=== PATIENT | male | born 1990 | race Caucasian/White ===

== ENCOUNTER → 2021-01-15 11:40 | Outpatient (CLI) | payer OTHER, SELFPAY ==
--- NOTE | 2021-01-15 | DI.MRI.S_ITS ---
PROCEDURE: MR KNEE LT WO CON INDICATIONS: Unspecified internal derangement of left knee TECHNIQUE: Noncontrast sagittal PD fast spin echo and T2 fast spin echo with fat saturation, sagittal 3-D FLASH with fat saturation; coronal T1 spin echo and PD fast spin echo with fat saturation, and axial PD fast spin echo with fat saturation through the knee. COMPARISON: None. FINDINGS: Image quality: Excellent. Menisci: There is ill-defined tear involving the peripheral aspect of the posterior horn of the medial meniscus (series 11 image 25. The lateral meniscus demonstrates normal morphology and internal signal. The meniscal root ligaments appear intact. Cruciate ligaments: The anterior cruciate ligament is torn. The posterior cruciate ligament appears intact. Medial structures: There is partial tear (grade 2) of the medial collateral ligament. The semimembranosus tendon insertions and meniscocapsular junction appear intact. Visualized portions of the pes anserinus tendons appear normal. No abnormal bursal fluid. Lateral structures: The lateral collateral ligament and the biceps femoris tendon appear intact. The popliteus tendon appears normal; the popliteofibular ligament appears intact. Iliotibial band appears normal. Anterior structures: The quadriceps and patellar tendons appear intact. Patellar alignment is normal. No femoral trochlear dysplasia or ventral trochlear prominence. No edema in the infrapatellar fat pad. Bones and cartilage: No fractures. There is marrow edema involving the posterior lateral tibial plateau. Small indentation with subchondral edema of the the anterior aspect of the lateral femoral condyle is noted, compatible with impaction injury. The cartilage of the medial and lateral femorotibial compartments, as well as the patellofemoral compartment, appears normal in thickness. Joint space: There is small effusion. ic knee joint effusion. No Turner's cyst. Normal appearing synovial plicae are incidentally noted. IMPRESSION: 1. Torn ACL. 2. Partial tear of the medial collateral ligament. 3. Ill-defined tear of the peripheral aspect of the posterior horn of the medial meniscus. 4. Bone marrow contusion involving the posterior lateral tibial plateau and small impaction injury of the anterior lateral femoral condyle. 5. Small knee joint Dictated by: Peggy Torres M.D. on 01/17/2021 at 10:27 Approved by: Peggy Torres M.D. on 01/17/2021 at 10:37
== END ==
PROVIDERS: Referring Provider Orthopaedic Surgery; Visit Provider Orthopaedic Surgery
DX: M23.92 Unspecified internal derangement of left knee (principal); S83.512A Sprain of anterior cruciate ligament of left knee, initial encounter; S83.412A Sprain of medial collateral ligament of left knee, initial encounter; S83.242A Other tear of medial meniscus, current injury, left knee, initial encounter; S80.02XA Contusion of left knee, initial encounter
CPT/HCPCS: 73721